=== PATIENT | female | born 1985 | race Caucasian/White ===

== ENCOUNTER 2017-12-06 12:55 | Emergency (ER) | payer OTHER ==
[2017-12-06] MEDS: IBUPROFEN 600 MG TAB PO (13:32)
== END 2017-12-06 14:49 | disposition home or self-care (01) ==
LOC: FTE 12:55
DX: M79.672 Pain in left foot (principal)
CPT/HCPCS: 73610; 73630-LT; 99283-25

== ENCOUNTER → 2018-11-07 | Emergency (ER) | payer OTHER | END | disposition home or self-care (01) | LOC: FTE 10:13 | DX: J20.9 Acute bronchitis, unspecified (principal) | CPT/HCPCS: 99283; Z7502 ==